=== PATIENT | female | born 2000 | race Caucasian/White ===

== ENCOUNTER 2019-09-20 13:01 | Inpatient (IN) | payer MEDICAID ==
[~2019-09-20] VITALS: Ht 157.5 cm; Wt 73.1 kg
[~2019-09-20 13:01] MED LIST: ANXIETY PO; DEPRESSION
[2019-09-20] MEDS ORDERED: ONDANSETRON 2MG/ML, 2ML IV PRN (14:00)
[2019-09-20] MEDS ORDERED: MAGNESIUM HYDROXIDE 8%, 30ML UDC PO PRN (14:00)
[2019-09-20] MEDS ORDERED: ACETAMINOPHEN 325 MG TABLET PO PRN (14:00)
[2019-09-20] MEDS ORDERED: METOCLOPRAMIDE 5 MG/ML, 2ML IV PRN (14:00)
[2019-09-20] MEDS ORDERED: CALCIUM CARBONATE 500 MG TAB.CHEW PO PRN (14:00)
[2019-09-20] MEDS ORDERED: SIMETHICONE 80 MG CHEW TAB PO PRN (14:00)
[2019-09-20] MEDS ORDERED: CETI-237 PO (14:46)
[2019-09-20] MEDS ORDERED: TRIA15OI10 TP (14:50)
[2019-09-20] MEDS ORDERED: ALBU5SOL6 INH (14:53)
[2019-09-20 16:25] VITALS: BP 136/85
[2019-09-20 17:27] LABS: AMPHETAMINE SCREEN, URINE Positive (Negative); BARBITURATE SCREEN, URINE Negative (Negative); BENZODIAZEPINE SCREEN, URINE Negative (Negative); CANNABINOID SCREEN, URINE Negative (Negative); COCAINE SCREEN, URINE Negative (Negative); METHADONE SCREEN, URINE Negative (Negative); OPIATE SCREEN, URINE Negative (Negative)
[2019-09-20] MEDS: DOCUSATE 100 MG CAPSULE PO PRN (17:29)
[2019-09-20] MEDS: IBUPROFEN 600 MG TABLET PO PRN ×2 (17:29→23:52)
[2019-09-20 21:00] VITALS: BP 120/74
[2019-09-20 21:04] LABS: BASOPHILS # (AUTO) 0.02 x10^3/uL (0-0.3); BASOPHILS % (AUTO) 0 % (0-1); EOSINOPHILS # (AUTO) 0.29 x10^3/uL (0-0.8); EOSINOPHILS % (AUTO) 3 % (1-7); LYMPHOCYTES # (AUTO) 2.31 x10^3/uL (1-6.1); LYMPHOCYTES % (AUTO) 23 % (22-44); MD NO; MEAN CORPUSCULAR HEMOGLOBIN 30.6 pg (27.0-34.8); MEAN CORPUSCULAR HGB CONC 33.4 g/dL (32.4-35.8); MEAN CORPUSCULAR VOLUME 91.7 fL (80-100); MEAN PLATELET VOLUME 9.3 fL (7.4-10.4); MONOCYTES % (AUTO) 6 % (2-9); NEUTROPHILS # (AUTO) 6.75 x10^3/uL (1.8-8.0); NEUTROPHILS % (AUTO) 68 % (42-75); PLATELET COUNT 199 x10^3/uL (130-400); RED BLOOD COUNT 4.45 x10^6/uL (3.82-5.3); RED CELL DISTRIBUTION WIDTH 12.4 % (9.6-15.2)
[2019-09-21] VITALS: BP 108/72
[2019-09-21] MEDS ORDERED: NICOTINE 7 MG/24 HR PATCH.TD24 TD SCH (01:30)
[2019-09-21 05:10] VITALS: BP 113/86
[2019-09-21] MEDS ORDERED: PRENATAL VIT/IRON/FA 1 EACH TABLET PO SCH (09:00)
[2019-09-21] MEDS ORDERED: DOCU-131 PO (09:59)
[2019-09-21] MEDS: DOCUSATE 100 MG CAPSULE PO PRN (10:13)
[2019-09-21] MEDS: IBUPROFEN 600 MG TABLET PO PRN ×2 (10:13→16:18)
[2019-09-21 10:20] VITALS: BP 127/82
[2019-09-21 16:57] VITALS: BP 128/82
== END 2019-09-21 18:55 | disposition home or self-care (01) | DRG 561 ==
LOC: ED 13:35 → EDIP 13:36 → ED 13:39 → 2NW 15:35
PROVIDERS: ADMIT Family Medicine; ATTEND Obstetrics & Gynecology
DX: O99.325 Drug use complicating the puerperium (principal); F15.10 Other stimulant abuse, uncomplicated; O99.335 Smoking (tobacco) complicating the puerperium; K59.00 Constipation, unspecified; O99.825 Streptococcus B carrier state complicating the puerperium; Z88.8 Allergy status to other drugs, medicaments and biological substances
CPT/HCPCS: 36415; 80307; 85025; 99285; G0378